=== PATIENT | female | born 1965 ===

== ENCOUNTER 2024-09-03 15:36 | Outpatient (REF) | payer MEDICAID, SELFPAY | END 2024-09-03 15:37 | disposition home or self-care (01) | LOC: HO.HOSX 15:36 | PROVIDERS: Visit Provider Orthopaedic Surgery | DX: Z13.89 Encounter for screening for other disorder (principal) ==

== ENCOUNTER 2024-10-08 09:47 | Outpatient (AMB) | payer MEDICAID, SELFPAY ==
--- NOTE | 2024-10-08 09:49 | A.OFFVIS_ITS ---
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 Pt states she fell and tried to catch herself with her hand. Pt states she has pain all the time in her wrist and states she has tingling in her fingers sometimes. 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 The patient states that since that time, she has been experiencing significant discomfort, primarily in the radial aspect of the right wrist, moving into the base of the thumb and into the forearm. The patient states sometimes the pain gets so severe that it feels as if it was going all the way to the shoulder. Patient denies any numbness in the right hand, but does report some occasional tingling and near constant pain in her wrist and hand. No other acute complaints or concerns at this time. Review of Systems Const All systems reviewed & are unremarkable except as noted in HPI and below Physical Exam Extrem Other: Patient is alert, oriented, and in no acute distress. Neuro: Normal sensation of the tips of all digits of the right hand at this time Vascular: Cap refill brisk Pain: Patient reports significant tenderness to palpation of the right radial styloid Positive Ashia test on the right No tenderness to palpation of the ulnar styloid, DRUJ, or elsewhere in the right hand or wrist ROM: Patient is able to make a closed fist and extend all digits of the right hand fully, but reports some discomfort in her thumb when doing so Skin: No lacerations or abrasions. General: No ecchymosis, erythema, or evidence of infection. Psych: Appears grossly normal Affect normal Attitude cooperative Assessment & Plan Assessment & Plan (1) De Quervain's tenosynovitis, right: Code(s): M65.4 - Radial styloid tenosynovitis [de Quervain] Category: Medical Plan 1. De Quervain tenosynovitis, right Patient is educated about this condition and the treatment options available Patient would like to proceed with steroid injection Injection #1: The risks and benefits of a steroid injection including but not limited to risk of damage to blood vessels, nerves, tendons, infection, skin bleaching, failure to improve symptoms, increased pain, and possible need for further injections or other intervention were discussed with the patient and the patient wishes to proceed with the steroid injection. Once consent was obtained, I sterilely prepped the area over the 1st dorsal compartment of the right thumb. I then injected the 1st dorsal compartment with a combination of 1 mL of dexamethasone (4mg/ml), and 1% lidocaine. The patient tolerated the procedure well with no complications and good resolution of their symptoms prior to leaving clinic. If the patient continues to have pain 6-8 weeks following this injection, they may call to schedule appointment to discuss alternative treatment options Coding Level of Care Code New Pt Level 3 (96552) Diagnoses De Quervain's tenosynovitis, right M65.4
== END 2024-10-08 10:48 | disposition home or self-care (01) ==
DX: M65.4 Radial styloid tenosynovitis [de Quervain] (principal)
CPT/HCPCS: 20550; 99203

== ENCOUNTER → 2024-10-08 09:47 | Outpatient (BNVA) | payer MEDICAID, SELFPAY | DX: M65.4 Radial styloid tenosynovitis [de Quervain] (principal) | CPT/HCPCS: 20550; 99212; J1100; J2003 ==